=== PATIENT | female | born 1960 | race Caucasian/White ===

== ENCOUNTER → 2017-01-01 | Outpatient (CLI) | payer MEDICAID ==
--- NOTE | 2017-01-02 14:31 | RAD ---
EXAM DESCRIPTION: Lumbar Spine 3 Views CLINICAL HISTORY: 56 years, Female, LOW BACK PAIN COMPARISON: None. FINDINGS: Normal vertebral body height. Mild narrowing L2-3 with some early spurring. Narrowing with vacuum disc L3-4 and L4-5. About 2 mm of retrolisthesis L4-5. Lower left lumbar curvature probably due to degenerative change. IMPRESSION: No acute bony injury. 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 Left lumbar curvature probably due to degenerative change. Electronically signed by: Gilbert Farrell MD 01/02/2017 2:30 PM CDT
== END | disposition home or self-care (01) ==
LOC: RAD 13:51
PROVIDERS: ATTEND Nurse Practitioner Family
DX: I10 Essential (primary) hypertension (principal); M54.5 Low back pain; E78.2 Mixed hyperlipidemia